=== PATIENT | male | born 1990 | race Caucasian/White ===

== ENCOUNTER 2017-06-12 22:14 | Emergency (ER) | payer BC ==
[2017-06-12] MEDS ORDERED: Proparacaine 0.5% Opth 15 ML BOT ONE (22:23)
[2017-06-12] MEDS ORDERED: Fluorescein Opthalmic Strip ONE (22:23)
[2017-06-12] MEDS ORDERED: Ketorolac Tromethamine 30 MG/ML VIAL ONE (22:31)
[2017-06-12] MEDS ORDERED: HYDROcodone/Acetaminophen 10/325 mg Tablet ONE (23:37)
== END 2017-06-13 01:00 | disposition home or self-care (01) ==
LOC: ERS 22:14
DX: Z77.098 Contact with and (suspected) exposure to other hazardous, chiefly nonmedicinal, chemicals (principal)
CPT/HCPCS: 96360; 96372; J1885